=== PATIENT | female | born 1970 | race Asian ===

== ENCOUNTER 2020-11-15 08:01 | Outpatient (CLI) | payer BC | END 2020-11-15 08:02 | disposition home or self-care (01) | LOC: CSHMAMMO 08:01 | PROVIDERS: ATTEND Family Medicine Sports Medicine | DX: Z12.31 Encounter for screening mammogram for malignant neoplasm of breast (principal) | CPT/HCPCS: 77063; 77067 ==

== ENCOUNTER 2020-12-20 13:26 | Outpatient (CLI) | payer BC ==
[2020-12-21 01:18] LABS: SARS-CoV-2 PCR by NAA Not Detected (NotDetected)
== END 2020-12-20 13:27 | disposition home or self-care (01) ==
LOC: CSHLAB 13:26
PROVIDERS: ATTEND Internal Medicine Gastroenterology
DX: Z20.822 Contact with and (suspected) exposure to COVID-19 (principal); Z12.11 Encounter for screening for malignant neoplasm of colon
CPT/HCPCS: 87635; U0003; U0005

== ENCOUNTER 2020-12-23 07:40 | Day surgery (SDC) | payer BC ==
[2020-12-22 09:10] VITALS: BMI 23.3
[2020-12-23] MEDS ORDERED: Lidocaine 1% MPF 2 ML VIAL ONE (08:19)
[2020-12-23] MEDS ORDERED: PROPOFOL 40 ML ONE (09:50)
[2020-12-23] MEDS ORDERED: Midazolam HCl 2 mg/2 ml Vial ONE (09:50)
== END 2020-12-23 12:50 | disposition home or self-care (01) ==
LOC: CSHSDC 07:40
PROVIDERS: ATTEND Internal Medicine Gastroenterology
DX: Z12.11 Encounter for screening for malignant neoplasm of colon (principal); D12.4 Benign neoplasm of descending colon; K64.9 Unspecified hemorrhoids
CPT/HCPCS: 88305; J2250; J2704

== ENCOUNTER 2023-02-07 11:05 | Outpatient (CLI) | payer BC | END 2023-02-07 11:06 | disposition home or self-care (01) | LOC: CSHMAMMO 11:05 | PROVIDERS: ATTEND Family Medicine Sports Medicine | DX: Z12.31 Encounter for screening mammogram for malignant neoplasm of breast (principal) | CPT/HCPCS: 77063; 77067 ==